=== PATIENT | female | born 1975 | race American Indian/Alaskan Native ===

== ENCOUNTER 2017-02-27 08:57 | Outpatient (CLI) | payer OTHER ==
--- NOTE | 2017-02-27 14:44 | Ultrasound Report ---
Bilateral diagnostic digital mammogram with CAD and bilateral whole breast ultrasound including all 4 quadrants and subareolar regions of each breast. Findings: Comparison is made to a previous bilateral mammogram and ultrasound performed on June 16, 2015 from [facility]. The breasts are heterogeneously dense. There are innumerable bilateral breast masses most of which have increased in size and density compared to the previous study. No focal architectural distortion or suspicious calcifications are seen. A few coarse Renografin benign calcifications are seen in the right breast. Bilateral whole breast ultrasound reveals numerous bilateral cystic masses, the largest of which on the left measures 5.2 a 2.1 x 4.3 cm. The largest cyst in the right breast is seen at the 12:00 position measuring 4.2 x 2.3 x 3.9 cm. At the 10:00 position of the right breast, 10 cm from the nipple, there is a vague heterogeneous region with ill-defined borders which may simply represent fibrocystic breast tissue. A complex mass in this region is not definite excluded. This measures 4.3 x 2.3 x 4.2 cm. There is no acoustic shadowing and no other suspicious features are seen. Impression: Extensive fibrocystic changes with numerous large bilateral cystic masses with overall increase in size and number of masses since the previous study. In the right breast, there is a heterogeneous region which may represent a complex cyst or fibrocystic breast tissue. BI-RADS code: 3. Recommendation: A six-month followup targeted right breast ultrasound is recommended to reevaluate this area.
== END 2017-02-27 08:58 | disposition home or self-care (01) ==
LOC: MAMMO 08:57
PROVIDERS: ATTEND Family Medicine
DX: N60.21 Fibroadenosis of right breast (principal); N60.22 Fibroadenosis of left breast; N60.01 Solitary cyst of right breast; N63 Unspecified lump in breast
CPT/HCPCS: 76641; G0204; 77066